=== PATIENT | female | born 1975 | race Hispanic/Latino ===

== ENCOUNTER → 2018-12-17 | Outpatient (CLI) | payer SELFPAY ==
--- NOTE | 2018-12-18 17:05 | MAM ---
EXAM DESCRIPTION: 3D Screening BILATERAL : Digital Mammography. CLINICAL HISTORY: 43 years Female Screening . No complaints. No personal history of breast cancer. Mother with breast cancer at age 37. Also ovarian cancer. Remote family history of breast cancer.. Lifetime risk of developing breast cancer (Tyrer-Cuzick model)(%): 9.1. COMPARISON: Baseline study at this facility.. No prior reports available. TECHNIQUE: Bilateral CC and MLO projection full-field images, digital tomosynthesis mammographic technique. Bilateral digital 2-D full-field MLO images. CAD not available for tomosynthesis or 2-D images. FINDINGS: The breast parenchymal density pattern is: Heterogeneously dense breast tissue, which may obscure small masses. No skin thickening or nipple retraction. Architectural distortion in the lower inner quadrant of the middle third of the left breast at approximately 7:00 position. 6 cm from the nipple. Scattered microcalcifications. Focal asymmetry of the upper-outer quadrant right breast 10:30 position, 8 cm from the nipple. IMPRESSION: BI-RADS CATEGORY: 0 - INCOMPLETE- Need additional imaging evaluation. FOLLOW-UP: Recall for additional imaging: Bilateral full-field LM 2-D and tomosynthesis images. Bilateral targeted breast ultrasound the regions of interest.. Written communication concerning the IMPRESSION and Follow-up, will be mailed to the patient and referring health care provider. Electronically signed by: Harpal Rodarte MD 12/18/2018 5:03 PM CDT
== END ==
LOC: MAMMO 15:14
PROVIDERS: ATTEND Family Medicine
DX: Z12.31 Encounter for screening mammogram for malignant neoplasm of breast (principal)

== ENCOUNTER → 2019-01-13 | Outpatient (CLI) | payer OTHER ==
--- NOTE | 2019-01-13 16:37 | MAM ---
EXAM DESCRIPTION: 3D Diagnostic, Bilateral (accession [id number]), Breast,Bilateral (accession [id number]): Ultrasound CLINICAL HISTORY: 43 yearsFemaleABN MAMMO bilateral findings with focal asymmetry right breast and architectural distortion left breast. Ongoing clear nipple discharge on the right. Can be manually expressed. COMPARISON: . Other TECHNIQUE: Bilateral LM projection full-field images, digital mammographic tomosynthesis technique. Bilateral 2-D digital full-field images. LM projection. CAD not available . Transcutaneous scanning of the bilateral breasts utilizing carbajal-scale and Doppler modes. Scanning performed by the inspector precision assembly and Dr. Rodarte. FINDINGS: The breast parenchymal density pattern is: Heterogeneously dense breast tissue, which may obscure small masses. No skin thickening or nipple retraction focal asymmetry seen in the upper outer quadrant of the posterior third of the right breast is smaller on the diagnostic images. Minimal architectural distortion is still visualized. Ultrasound: Ultrasound right breast right upper quadrant. Heterogeneous fatty and fibroglandular elements. 10-11 o'clock, 8 cm from the nipple. Hypoechoic circumscribed mass with posterior acoustic enhancement and wider than tall orientation. Nonvascular. 6.8 x 5.9 mm. No dominant solid mass or distinct cyst. No large calcifications. Scanning of the left breast lower inner quadrant. The nipple to 6 cm posterior. No dominant solid mass or distinct cyst. No parenchymal edema or large calcifications. IMPRESSION: Probably benign lesion: Lymph node or fibroadenoma seen on ultrasound. BI-RADS CATEGORY: 3 - PROBABLY BENIGN. Management: Short interval (6-month) follow-up digital diagnostic right breast tomosynthesis and directed right breast ultrasound.. The FINDINGS and the FOLLOW-UP plan were reviewed in person with the patient after the examination. Written communication explaining the IMPRESSION and FOLLOW-UP will be mailed to the patient and referring care provider. Electronically signed by: Harpal Rodarte MD 01/13/2019 4:36 PM CDT
== END ==
LOC: MAMMO 11:02
PROVIDERS: ATTEND Family Medicine
DX: R92.8 Other abnormal and inconclusive findings on diagnostic imaging of breast (principal)

== ENCOUNTER → 2019-06-30 | Outpatient (CLI) | payer OTHER ==
--- NOTE | 2019-07-01 15:08 | MAM ---
EXAM DESCRIPTION: Diagnostic Mammo,Right (accession [id number]), Breast,Right (accession [id number]): Ultrasound CLINICAL HISTORY: 43 yearsFemaleABNL SCREEN 6 month follow-up focal asymmetry upper outer quadrant posterior third right breast. No current nipple discharge. Mother with breast cancer at age 37. Remote family history of breast cancer.. Lifetime risk of developing breast cancer (Tyrer-Cuzick model)(%): 9.1 COMPARISON: 3-D diagnostic bilateral mammography and ultrasound January 2019. Bilateral screening digital breast tomosynthesis December 2018. TECHNIQUE: Right breast LM, CC, and MLO projection full-field images, digital tomosynthesis technique. The 2-D digital full-field images: LM, CC, and MLO projections. CAD available for 2-D images.. Transcutaneous scanning of the right breast utilizing carbajal-scale and Doppler modes. Scanning performed by the dance master and Dr. Rodarte. FINDINGS: Right breast parenchymal density pattern is: Heterogeneously dense breast tissue, which may obscure small masses. No skin thickening or nipple retraction breast density in the upper outer quadrant of the right breast showing no interval change from the prior study. No new focal, stellate mass or density, focal asymmetry , and no suspicious microcalcifications right breast stable mammograms with breast. Ultrasound: Scanning of the upper outer quadrant right breast with emphasis at 10:30 position, 8 cm from the nipple. Circumscribed hypoechoic mass centrally with eccentric echogenic regions and minimal vascularity consistent with lymph node. Margins are more circumscribed compared to the prior study. No dominant solid mass, no distinct cyst, no large calcifications. IMPRESSION: Benign exam. BIRAD CATEGORY: 2 BENIGN FINDINGS. RECOMMENDATIONS: FOLLOW UP: Return to routine digital bilateral mammographic screening, on or after December 2019. Written communication explaining the IMPRESSION and follow-up, will be mailed to the patient and referring health care provider. The FINDINGS and the FOLLOW-UP plan were reviewed in person with the patient after the examination. According to the [employer], yearly mammograms are recommended starting at age 40 and continuing as long as a woman is in good health. Any breast change noted on a breast self-exam should be reported promptly to the patient's healthcare provider. Breast MRI is recommended for women with an approximately 20-25% or greater lifetime risk of breast cancer, including women with a strong family history of breast or ovarian cancer and women who have been treated for Hodgkin's disease. A negative mammographic report should not delay tissue diagnosis in patients with significant clinical history or physical findings. Extremely dense breast tissue limits the sensitivity of digital mammography. Electronically signed by: Harpal Rodarte MD 07/01/2019 3:07 PM CDT
== END ==
LOC: US 13:45
PROVIDERS: ATTEND Family Medicine
DX: D24.9 Benign neoplasm of unspecified breast (principal)
CPT/HCPCS: 76641; 77065; G0279